=== PATIENT | female | born 1960 ===

== ENCOUNTER 2018-01-17 10:58 | Emergency (ER) | payer OTHER ==
[~2018-01-17] VITALS: Ht 162.6 cm; Wt 60.2 kg
[2018-01-17 11:01] VITALS: TEMP 36.5; Ht 162.6 cm; Wt 60.2 kg
--- NOTE | 2018-01-17 11:33 | EMERGENCY ROOM VISIT NOTE ---
ED Visit Note First contact with patient: 11:06 CHIEF COMPLAINT: Left elbow pain, referred by Urgent Care HISTORY OF PRESENT ILLNESS: This 57-year-old female patient presents to the emergency department, ambulatory, complaining of pain in the left elbow after a fall yesterday. The patient was seen at [facility] and diagnosed with a supracondylar fracture. She was placed in an arm sling and sent to the ED for further evaluation. The patient rates their pain as sharp and 3/10. The patient has taken ibuprofen for relief of the pain. The patient has not had previous fractures to this elbow, but did have a proximal radius/ulna fracture several months before. The patient does not have any numbness or tingling. The patient denies any other injuries. REVIEW OF SYSTEMS: A 6 system review of systems was completed with positives and pertinent negatives listed in the HPI. ALLERGIES: None MEDICATIONS: Lipitor, Micardis PMH: Hyperlipidemia, hypertension SOCIAL HISTORY: The patient lives locally with family. She denies drug, alcohol , tobacco use. PHYSICAL EXAM: Vital Signs: Reviewed Nurse's notes, vital signs stable. GENERAL : This is a 57-year-old female, in no acute distress, well-developed, well- nourished. SKIN: The skin was without rashes, erythema, edema, warmth, or bruising. Capillary reflex less than 3 seconds. MUSCULOSKELETAL: The patient is holding their elbow in a flexed position in an arm sling. There is tenderness over the medial aspect of the left elbow. There is tenderness with any attempts at flexion or extension of the left elbow. There is no tenderness of the shoulder, wrist, or hand. The patient is able to give a thumbs up, make an OK sign, and a #3 with their fingers. Radial pulse 2+. NEURO: Patient was alert and oriented to person place and time. Normal sensation to light and sharp touch. RADIOLOGY: LEFT ELBOW 3 VIEWS CLINICAL HISTORY: Fall with left elbow injury. FINDINGS: 3 views of the left elbow are obtained. No prior studies are available for comparison at the time of dictation. The skeletal structures are osteopenic. An Intramedullary nail and cerclage wires are present in the proximal ulna. There is chronic posttraumatic deformity of the radial head. There is age indeterminant fracture of the lateral humeral epicondyle. Age indeterminant fracture line is also seen through the medial humeral epicondyle. A joint effusion is identified. There is significant soft tissue edema around the elbow, greatest medially. IMPRESSION: 1. There are age indeterminant fractures involving the medial and lateral humeral epicondyles. Correlation with prior outside imaging studies will be required. 2. There is soft tissue edema around the elbow and a joint effusion is identified. 3. Chronic posttraumatic deformity is seen in the radial head and there is postoperative change in the proximal ulna. Electronically signed by: Sam Patino M.D. 01/17/2018 1:09 PM Dictated Date/Time: 01/17/2018 1:06 PM L ELBOW 2 VIEWS CLINICAL HISTORY: 57 years-old Female presenting with fall with left elbow injury. TECHNIQUE: Lateral view of the elbow was obtained. COMPARISON: Radiographs from earlier today. FINDINGS: Single lateral view of the left elbow again demonstrates intramedullary nail and cerclage wire fixation of the olecranon and proximal metadiaphysis of the ulna. A supracondylar humeral fracture with slight apex dorsal angulation is evident. Elbow joint effusion. Diffuse soft tissue swelling is suggested. Deformity of the radius is chronic and may be posttraumatic. IMPRESSION: 1. The lateral view of the elbow was obtained as the prior 3 view radiographs series of the left elbow performed earlier today had suboptimal lateral positioning. Redemonstration of the mildly angulated left supracondylar humerus fracture. 2. Internal fixation of the ulna without evidence of hardware complication. 3. Elbow joint effusion. Electronically signed by: Shane Ortiz M.D. 01/17/2018 1:42 PM Dictated Date/Time: 01/17/2018 1:39 PM EMERGENCY DEPARTMENT COURSE: I examined the patient. Attempts were made to upload the patient's x-rays from [facility] into PACS. Neither I nor orthopedics were able to access the x-rays. New images were obtained. I discussed the case and films with Dr. Chavis who did review the x-rays. He requested a true lateral view. This was obtained and reviewed by myself, radiologist, and Dr. Chavis as above. He did recommend a posterior long-arm splint with follow-up outpatient in the office. I advised the patient of the findings as well as recommendation by orthopedics. They were provided with contact information to schedule an appointment. The patient was placed in a posterior long arm orthoglass splint under my direction and the position was satisfactory. Neurovascular status was rechecked and intact. The patient was discharged home in stable condition. I attest that I have personally reviewed the patient's current medication list. Patient was found to have normal blood pressure on screening and does not require follow-up. Etiologies such as soft tissue injury, fracture, dislocation, neurovascular compromise, compartment syndrome, as well as others were entertained. DIAGNOSIS: Supracondylar fracture of the left humerus The chart was completed utilizing [employer] voice recognition software. Grammatical errors, random word insertions, pronoun errors, and incomplete sentences are an occasional consequence of this system due to software limitations, ambient noise, and hardware issues. Any formal questions or concerns about the content, text, or information contained within the body of this dictation should be directly addressed to the provider for clarification. Current/Historical Medications Scheduled Atorvastatin (Lipitor), 10 MG PO DAILY Calcium/Vitamin D (Os-Antelmo 500 Plus D), 1 TAB PO DAILY Telmisartan (Micardis), 40 MG PO DAILY Scheduled PRN Ibuprofen (Motrin), 400 MG PO Q6H PRN for Pain Allergies Coded Allergies: No Known Allergies (Unverified , 01/17/18) Vital Signs Date Time Temp Pulse Resp B/P (MAP) Pulse Ox O2 Delivery O2 Flow Rate FiO2 01/17/18 14:34 90 16 138/81 100 01/17/18 11:01 36.5 97 20 149/88 100 Room Air Departure Information Impression Primary Impression: Closed supracondylar fracture of left elbow Dispostion Home / Self-Care Condition GOOD Referrals No Doctor, Assigned (PCP) Pino Chavis M.D. Patient Instructions ED Fx Elbow, My [facility] Additional Instructions You were seen in the ED today for a supracondylar fracture of the left arm. The orthopedic surgeon did review your films and recommended outpatient follow-up. Ibuprofen(Motrin, Advil) may be used for fever or pain. Use 600mg every six hours as needed. Take with food. Avoid using more than 2400mg in a 24 hour period. Do not use 2400mg per day for more than three consecutive days without physician direction. Prolonged inappropriate use can lead to stomach upset or ulcers. (AND/OR) Acetaminophen(Tylenol) may be used for fever or pain. Use 1000mg every six hours as needed. Avoid using more than 3000mg in a 24 hour period. Ice compresses for 20 minutes at a time four times daily for 2-3 days. Use the sling as instructed. Remove your arm from the sling 4-6 times a day and move all the joints around to keep them loose. Rest and elevate your injury. Do not get the splint wet. If your splint feels excessively tight, you have worsening pain, develop numbness or tingling, or your digits appear blue, loosen the elvis wrap. Then reapply the elvis wrap gently without removing the splint. If your symptoms are not quickly relieved return to the ER for re- evaluation. Return to the ER immediately for any numbness, tingling, severe pain, extreme swelling in the extremity or as needed. Contact [facility] today to establish follow-up for your injury. Follow-up with your primary care physician in 2 to 3 days for a recheck of your current condition. Problem Qualifiers Primary Impression: Closed supracondylar fracture of left elbow Encounter type: initial encounter Qualified Codes: S42.412A - Displaced simple supracondylar fracture without intercondylar fracture of left humerus, initial encounter for closed fracture
[2018-01-17] MEDS ORDERED: IBUP-1459 PO (11:44)
[2018-01-17] MEDS ORDERED: CALC500C70 PO (11:44)
[2018-01-17] MEDS ORDERED: ATOR10TA82 PO (11:44)
[2018-01-17] MEDS ORDERED: TELM40TA PO (11:44)
--- NOTE | 2018-01-17 13:10 | DIAGNOSTIC IMAGING REPORT ---
LEFT ELBOW 3 VIEWS CLINICAL HISTORY: Fall with left elbow injury. FINDINGS: 3 views of the left elbow are obtained. No prior studies are available for comparison at the time of dictation. The skeletal structures are osteopenic. An Intramedullary nail and cerclage wires are present in the proximal ulna. There is chronic posttraumatic deformity of the radial head. There is age indeterminant fracture of the lateral humeral epicondyle. Age indeterminant fracture line is also seen through the medial humeral epicondyle. A joint effusion is identified. There is significant soft tissue edema around the elbow, greatest medially. IMPRESSION: 1. There are age indeterminant fractures involving the medial and lateral humeral epicondyles. Correlation with prior outside imaging studies will be required. 2. There is soft tissue edema around the elbow and a joint effusion is identified. 3. Chronic posttraumatic deformity is seen in the radial head and there is postoperative change in the proximal ulna. Electronically signed by: Sam Patino M.D. 01/17/2018 1:09 PM Dictated Date/Time: 01/17/2018 1:06 PM
--- NOTE | 2018-01-17 13:44 | DIAGNOSTIC IMAGING REPORT ---
L ELBOW 2 VIEWS CLINICAL HISTORY: 57 years-old Female presenting with fall with left elbow injury. TECHNIQUE: Lateral view of the elbow was obtained. COMPARISON: Radiographs from earlier today. FINDINGS: Single lateral view of the left elbow again demonstrates intramedullary nail and cerclage wire fixation of the olecranon and proximal metadiaphysis of the ulna. A supracondylar humeral fracture with slight apex dorsal angulation is evident. Elbow joint effusion. Diffuse soft tissue swelling is suggested. Deformity of the radius is chronic and may be posttraumatic. IMPRESSION: 1. The lateral view of the elbow was obtained as the prior 3 view radiographs series of the left elbow performed earlier today had suboptimal lateral positioning. Redemonstration of the mildly angulated left supracondylar humerus fracture. 2. Internal fixation of the ulna without evidence of hardware complication. 3. Elbow joint effusion. Electronically signed by: Shane Ortiz M.D. 01/17/2018 1:42 PM Dictated Date/Time: 01/17/2018 1:39 PM
[2018-01-17 14:34] VITALS: BP 138/81; PULSE 90; O2SAT 100
== END 2018-01-17 14:35 | disposition home or self-care (01) ==
LOC: C.EDB 11:00 → C.EDD 14:35
DX: S42.412D Displaced simple supracondylar fracture without intercondylar fracture of left humerus, subsequent encounter for fracture with routine healing (principal); W19.XXXD Unspecified fall, subsequent encounter; E78.5 Hyperlipidemia, unspecified; I10 Essential (primary) hypertension; Z79.899 Other long term (current) drug therapy